=== PATIENT | male | born 1985 | race Caucasian/White ===

== ENCOUNTER 2025-05-21 06:31 | Day surgery (SDC) | payer OTHER, SELFPAY | END 2025-05-21 15:21 | disposition home or self-care (01) | LOC: GI 06:31 | PROVIDERS: ATTENDING PHYSICIAN Internal Medicine | DX: Z12.11 Encounter for screening for malignant neoplasm of colon (principal); D12.2 Benign neoplasm of ascending colon; K51.00 Ulcerative (chronic) pancolitis without complications; K62.89 Other specified diseases of anus and rectum; K64.8 Other hemorrhoids; K64.4 Residual hemorrhoidal skin tags; Z86.0101 Personal history of adenomatous and serrated colon polyps | CPT/HCPCS: 45385; 45380; 88305 ==